=== PATIENT | female | born 1955 | race Caucasian/White ===

== ENCOUNTER 2017-11-30 22:20 | Emergency (ER) | payer BC ==
--- NOTE | 2017-11-30 22:32 | EDM.PDOC ---
ED HPI GENERAL MEDICAL PROBLEM - General Chief Complaint: Abdominal Pain Stated Complaint: ABDOMINAL PAIN, VOMITING Time Seen by Provider: 11/30/17 22:24 Source of Information: Reports: Patient - History of Present Illness INITIAL COMMENTS - FREE TEXT/NARRATIVE: Rani is a 62 year old female, with a PMH of SVT, hyperlipidemia, and allergic rhinitis, who presents to the ER with complaints of abdominal pain and vomiting. She reports that throughout the day she had some mid abdominal pain. She thought she just had an upset stomach. She reports she wasn't able to eat much at noon. She then got home from work and laid down. She reports that through the evening her pain worsened and became more localized to her RLQ. She rates the pain a 10/10. She also began throwing up. She reports she has vomited 5-6 times this evening. She also reports subjective fever and chills. She is afebrile in the ED. She did not take anything at home for the pain. She reports she has not eaten any solid foods since noon. Has had a few sips of water this evening around 2100. Denies any diarrhea, chest pain, shortness of breath, dysuria, urinary frequency or urgency. Denies any history of this type of pain. She reports she still has her appendix and gallbladder. Has had a hysterectomy. No issues with anesthesa in the past. Onset: Today Duration: Getting Worse Location: Reports: Abdomen Quality: Reports: Ache, Sharp Severity: Severe Improves with: Reports: None Associated Symptoms: Reports: Fever/Chills, Loss of Appetite, Nausea/Vomiting. Denies: Confusion, Chest Pain, Cough, cough w sputum, Diaphoresis, Headaches, Malaise, Rash, Seizure, Shortness of Breath, Syncope, Weakness Right Lower Abdomen Pain Score (Numeric/FACES): 10 - Related Data Allergies Allergy/AdvReac Type Severity Reaction Status Date / Time No Known Allergies Allergy Verified 11/30/17 22:53 Home Meds: Home Meds Cellwise 1 tab PO DAILY 08/22/16 [History] Cholecalciferol (Vitamin D3) [Vitamin D3] 2,000 unit PO DAILY 08/22/16 [History] Maxivision 1 tab PO DAILY 08/22/16 [History] Activate 1 tab PO DAILY 11/30/17 [History] Fish Oil/[place]-3 Fatty Acids [Fish Oil] 500 mg PO DAILY 11/30/17 [History] Magnesium 500 mg PO DAILY 11/30/17 [History] Phytomega 1 tab PO DAILY 11/30/17 [History] Past Medical History HEENT History: Reports: Allergic Rhinitis Cardiovascular History: Reports: High Cholesterol - Past Surgical History Female Surgical History: Reports: Hysterectomy Social & Family History - Tobacco Use Smoking Status *Q: Never Smoker - Recreational Drug Use Recreational Drug Use: No ED ROS GENERAL - Review of Systems Review Of Systems: See Below Constitutional: Reports: Fever, Chills, Weakness, Decreased Appetite Respiratory: Reports: No Symptoms Cardiovascular: Reports: No Symptoms GI/Abdominal: Reports: Abdominal Pain, Anorexia, Decreased Appetite, Nausea, Vomiting. Denies: Black Stool, Bloody Stool, Constipation, Diarrhea, Difficulty Swallowing, Distension, Hematemesis, Hematochezia, Melena, Mucous in Stool, Stool Incontinence : Reports: No Symptoms. Denies: Dysuria, Flank Pain, Frequency, Pain, Urgency Musculoskeletal: Reports: No Symptoms Skin: Reports: No Symptoms Neurological: Reports: No Symptoms Psychiatric: Reports: No Symptoms Hematologic/Lymphatic: Reports: No Symptoms Immunologic: Reports: No Symptoms ED EXAM, GI/ABD - Physical Exam Exam: See Below Exam Limited By: No Limitations General Appearance: Alert, WD/WN, Moderate Distress Head: Atraumatic, Normocephalic Neck: Normal Inspection, Supple, Non-Tender, Full Range of Motion Respiratory/Chest: No Respiratory Distress, Lungs Clear, Normal Breath Sounds, No Accessory Muscle Use, Chest Non-Tender Cardiovascular: Normal Peripheral Pulses, Regular Rate, Rhythm, No Edema, No Gallop, No JVD, No Murmur, No Rub GI/Abdominal Exam: Soft, No Distention, Guarding, Tender (RLQ), Abnormal Bowel Sounds, Other (tinkling abd sounds). No: Rebound Back Exam: Normal Inspection, Full Range of Motion. No: CVA Tenderness (L), CVA Tenderness (R) Neurological: Alert, Oriented, CN II-XII Intact, Normal Cognition, Normal Gait, Normal Reflexes, No Motor/Sensory Deficits Psychiatric: Anxious, Tearful Skin Exam: Warm, Dry, Intact, Normal Color, No Rash Lymphatic: No Adenopathy Course - Vital Signs Last Recorded V/S: Last Vital Signs Temp 99.4 F 12/01/17 00:47 Pulse 65 12/01/17 00:47 Resp 22 H 12/01/17 00:47 BP 106/58 L 12/01/17 00:47 Pulse Ox 93 L 12/01/17 00:47 - Orders/Labs/Meds Orders: Active Orders 24 hr Category Date Time Status Abdomen Pelvis w Cont [CT] Stat Exams 11/30/17 22:48 Taken Piperacillin/Tazobactam [Zosyn] 3.375 gm Med 12/01/17 00:15 Active Sodium Chloride 0.9% [Normal Saline] 50 ml IV STAT Medication Orders Piperacillin Sod/Tazobactam (Sod 3.375 gm/ Sodium Chloride) 50 mls @ 100 mls/ hr IV STAT ANA PAULA Last Admin: 12/01/17 00:31 Dose: 100 mls/hr Labs: Laboratory Tests 11/30/17 11/30/17 11/30/17 Range/Units 22:24 22:24 23:05 WBC 14.1 H (5.0-10.0) 10^3/uL RBC 4.40 (4.00-5.50) 10^6/uL Hgb 13.0 (12.0-16.0) g/dL Hct 38.3 (37.0-47.0) % MCV 87.0 (82.0-94.0) fL MCH 29.5 (27.0-32.0) pg MCHC 33.9 (33.0-38.0) g/dL RDW Coeff of Isaura 12.4 (11.0-15.0) % Plt Count 197 (150-400) 10^3/uL Neut % (Auto) 85.9 H (35-85) % Lymph % (Auto) 10.2 (10-55) % Hunt % (Auto) 3.7 (0-16) % Eos % (Auto) 0.1 (0-5) % Baso % (Auto) 0.1 (0-3) % Neut # (Auto) 12.11 H (1.80-7.00) 10^3/uL Lymph # (Auto) 1.44 (1.00-4.80) 10^3/uL Hunt # (Auto) 0.52 (0.00-0.80) 10^3/uL Eos # (Auto) 0.01 (0.00-0.45) 10^3/uL Baso # (Auto) 0.02 10^3/uL Sodium 138 (136-145) mEq/L Potassium 3.6 (3.5-5.0) mEq/L Chloride 99 (98-106) mEq/L Carbon Dioxide 25 (21-32) mmol/L BUN 18 (7-18) mg/dL Creatinine 0.9 (0.6-1.0) mg/dL Est Cr Clr Drug Dosing 68.60 mL/min Estimated GFR (MDRD) > 60 (>=60) mL/min Glucose 199 H D (75-99) mg/dL Calcium 9.6 (8.4-10.1) mg/dL Total Bilirubin 0.8 (0.0-1.0) mg/dL AST 19 (15-37) U/L ALT 21 (12-78) U/L Alkaline Phosphatase 81 (46-116) U/L C-Reactive Protein < 0.2 L (0.2-0.8) mg/dL Total Protein 7.1 (6.4-8.2) g/dL Albumin 4.2 (3.4-5.0) g/dL Amylase 39 (25-115) U/L Urine Color Yellow (YELLOW) Urine Appearance Cloudy (CLEAR) Urine pH 8.5 H (4.5-8.0) Ur Specific Robinson 1.015 (1.003-1.020) Urine Protein Negative (NEGATIVE) mg/dL Urine Glucose (UA) Negative (NEGATIVE) mg/dL Urine Ketones >=160 H (NEGATIVE) mg/dL Urine Occult Blood Trace-intact H (NEGATIVE) Urine Nitrite Negative (NEGATIVE) Urine Bilirubin Negative (NEGATIVE) Urine Urobilinogen 0.2 (0.2-1.0) EU/dL Ur Leukocyte Esterase Trace H (NEGATIVE) Urine RBC 0-5 (0-5) /HPF Urine WBC 0-5 (0-5) /HPF Ur Epithelial Cells Few H (NOT SEEN) /HPF Amorphous Sediment Many H (NOT SEEN) /HPF Meds: Medications Generic Name Dose Route Start Last Admin Trade Name Freq PRN Reason Stop Dose Admin Piperacillin Sod/Tazobactam 50 mls @ 100 mls/hr 12/01/17 00:15 12/01/17 00:31 Sod 3.375 gm/ Sodium Chloride IV 100 mls/hr STAT ANA PAULA Administration Discontinued Medications Generic Name Dose Route Start Last Admin Trade Name Mauricio PRN Reason Stop Dose Admin Fentanyl 50 mcg 11/30/17 22:30 11/30/17 22:38 Sublimaze IVPUSH 11/30/17 22:31 50 mcg ONETIME ONE Administration Fentanyl 50 mcg 11/30/17 23:17 11/30/17 23:53 Sublimaze IVPUSH 11/30/17 23:18 50 mcg ONETIME ONE Administration Sodium Chloride 1,000 mls @ 999 mls/hr 11/30/17 22:30 11/30/17 22:40 Normal Saline IV 11/30/17 23:30 999 mls/hr .BOLUS ONE Administration Sodium Chloride Confirm 12/01/17 00:49 Normal Saline Administered 12/01/17 00:50 Dose 1,000 mls @ as directed .ROUTE .STK-MED ONE Iopamidol 100 ml 11/30/17 22:58 11/30/17 23:39 Isovue-300 (61%) IVPUSH 11/30/17 22:59 100 ml ONETIME ONE Administration Ondansetron HCl 4 mg 11/30/17 22:31 11/30/17 22:40 Zofran IVPUSH 11/30/17 22:32 4 mg STAT STA Administration - Radiology Interpretation Free Text/Narrative:: CT reveals acute appendicitis. No perforation or abscess. CT Results Date: 12/01/17 CT Results Time: 00:00 - Re-Assessments/Exams Free Text/Narrative Re-Assessment/Exam: Discussed lab results with patient and spouse. WBC elevated. Given exam findings and leukocytosis, will proceed with CT abd/pelvis. All other labs stable. Ct abd/pelvis shows acute appendicits. IV Zosyn 3.75 mg administered. Discussed that patient would need to be transferred out for general surgery consultation. [place] [facility] [place] that they would [place] her, but would not likely operate until tomorrow afternoon. Called [facility], who also accepted for transfer and reported they would operate upon arrival. Dr. Savage (general surgery) accepting physician. [facility] will provide ALS transfer, as patient will need pain medications enroute. She does not feel she can sit up in a chair without significant discomfort and vomiting. Free Text/Narrative Re-Assessment/Exam: 12/01/17 01:00 Discussed risks and benefits of transfer with patient and spouse. Risks of transfer include worsening of condition enroute, , or vehicle crash. Benefits of transfer include specialized care and general surgeon on staff. Risks of nontransfer include worsening of condition, , and non specialized surgical care. Benefits of non-transfer include familiar environment and closer to home. Patient and spouse verbalized understanding and agree to transfer to [facility]. Departure - Departure Time of Disposition: 01:12 Disposition: DC/Tfer to Acute Hospital 02 Condition: Fair Clinical Impression: Appendicitis Qualifiers: Appendicitis type: acute appendicitis Acute appendicitis type: unspecified acute appendicitis type Qualified Code(s): K35.80 - Unspecified acute appendicitis - Discharge Information Instructions: Appendicitis Referrals: Riaz Washington MD [Primary Care Provider] - Forms: ED Department Discharge Additional Instructions: Transfer via [facility] ALS. Accepting surgeon at [facility] is Dr. Savage Patient will go to ER for pre op examination Pain meds as needed enroute - My Orders Last 24 Hours: My Active Orders 11/30/17 22:48 Abdomen Pelvis w Cont [CT] Stat 12/01/17 00:15 Piperacillin/Tazobactam [Zosyn] 3.375 gm Sodium Chloride 0.9% [Normal Saline] 50 ml IV STAT - Assessment/Plan Last 24 Hours: My Active Orders 11/30/17 22:48 Abdomen Pelvis w Cont [CT] Stat 12/01/17 00:15 Piperacillin/Tazobactam [Zosyn] 3.375 gm Sodium Chloride 0.9% [Normal Saline] 50 ml IV STAT
[2017-11-30] MEDS: fentaNYL 100 MCG/2 ML SDV IVPUSH ONE ×2 (22:38→23:53)
[2017-11-30] MEDS: Sodium Chloride 0.9% 1,000 ML IV ONE (22:40)
[2017-11-30] MEDS: Ondansetron 4 MG/2 ML SDV IVPUSH STA (22:40)
[2017-11-30 22:44] LABS: CHLORIDE,CL 99 mEq/L (98-106); SODIUM,NA 138 mEq/L (136-145)
[2017-11-30] MEDS: Iopamidol 612 MG/ML 100 ML Bottle IVPUSH ONE (23:39)
[2017-12-01] MEDS: Piperacillin/Tazobactam 3.375 GM in Sodium Chloride 0.9% 50 ML IV SCH (00:31)
[2017-12-01 00:48] VITALS: BP 106/58
[2017-12-01] MEDS: Sodium Chloride 0.9% 1,000 ML IV SCH (01:05)
[2017-12-01] MEDS: Sodium Chloride 0.9% 1,000 ML ONE (01:16)
[2017-12-01] MEDS: fentaNYL 100 MCG/2 ML SDV IVPUSH ONE (01:33)
== END 2017-12-01 01:45 ==
LOC: CC.ED 22:20
DX: K35.80 Unspecified acute appendicitis (principal); E78.00 Pure hypercholesterolemia, unspecified; Z79.899 Other long term (current) drug therapy
CPT/HCPCS: 36415; 74177; 80053; 81001; 82150; 85025; 86140; 96365; 96366; 96367; 96375; 96376; 99285; J2405; J2543; J3010; J7030; J7050; Q9967

== ENCOUNTER → 2018-04-29 | Day surgery (SDC) | payer BC ==
[~2018-04-29] MED LIST: Lactated Ringers 1,000 ML IV SCH; Propofol 200 MG/20 ML SDV IV ONE
[2018-04-29] MEDS: Lactated Ringers 1,000 ML IV SCH (08:20)
[2018-04-29 09:57] VITALS: BP 117/65
--- NOTE | 2018-05-02 11:55 | OR ---
DATE OF OPERATION: 04/29/2018 PREOPERATIVE DIAGNOSIS: FOLLOWUP POLYPS. POSTOPERATIVE DIAGNOSIS: FOLLOWUP POLYPS. SURGEON: Hunter Ulloa MD PROCEDURE: FULL-LENGTH COLONOSCOPY WITH POLYP REMOVAL X3. ANESTHESIA: [employer]GER. COMPLICATIONS: None. SPECIMEN: Three hyperplastic polyps, distal colon. RECOMMENDATIONS: Followup colonoscopy in 5 years. INDICATIONS: The patient has a prior history of villous removal of a polyp in the rectal vault. She was scheduled for a followup procedure. DESCRIPTION OF PROCEDURE: The patient was prepped and draped, placed in left lateral decubitus position. A lubricated Olympus colonoscope was inserted and with relative ease, advanced to the cecum. Direct visualization of the ileocecal valve and appendiceal orifice was accomplished. The bowel prep was fine. Upon withdrawal of the scope, the cecum and ascending colon appeared benign. The patient on her last scope had some early signs of collagenous colitis. No visualization of that today. Transverse and descending colons were unremarkable. Throughout the sigmoid and rectosigmoid area, I could find no signs of any vascular abnormalities, bleeding sites, or signs of colitis. There were no diverticula. The patient had 2 small hyperplastic polyps in the rectosigmoid junction, both removed with a forceps. The rectal vault appeared unremarkable. Retroflexion showed no perianal lesions. 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 She had 1 small flat hyperplastic polyp in the rectal vault, also removed with a forceps in its entirety. Air was then suctioned. Scope removed without complications. The patient was stable in the recovery room. IRASEMA/ORACIO /[id number]
== END ==
LOC: CC.SDS 08:01
PROVIDERS: ATTEND Family Medicine
DX: Z12.11 Encounter for screening for malignant neoplasm of colon (principal); K63.5 Polyp of colon; K62.1 Rectal polyp; E78.5 Hyperlipidemia, unspecified; Z86.010 Personal history of colon polyps; Z79.82 Long term (current) use of aspirin
CPT/HCPCS: J2704; J7120